=== PATIENT | male | born 1990 ===

== ENCOUNTER 2018-04-07 13:54 | Emergency (ER) | payer OTHER ==
--- NOTE | 2018-04-07 16:02 | ED PDOC ---
HPI: Psych/Substance Abuse Time Seen by Provider: 04/07/18 15:31 Chief Complaint (Nursing): Psychiatric Evaluation Chief Complaint (Provider): Psychiatric Evaluation History Per: Patient History/Exam Limitations: no limitations Onset/Duration Of Symptoms: Days Current Symptoms Are (Timing): Still Present Additional Complaint(s): 27 year old male with a history of paranoia presents to the ER for psychiatric evaluation. He was sent by Dr. Gary Draper for testing. Patient refused to take Aristada IM injection because the side effects of memory loss and advised to c ome to the ER. Denies suicidal ideation or homicidal ideation. Past Medical History Reviewed: Historical Data, Nursing Documentation, Vital Signs Vital Signs: Last Vital Signs Temp 98.5 F 04/07/18 13:56 Pulse 55 L 04/07/18 13:56 Resp 16 04/07/18 13:56 BP 150/88 04/07/18 13:56 Pulse Ox 98 04/07/18 13:56 - Medical History PMH: No Chronic Diseases - Family History Family History: States: Unknown Family Hx - Allergies Allergies/Adverse Reactions: Allergies Allergy/AdvReac Type Severity Reaction Status Date / Time No Known Allergies Allergy Verified 04/07/18 15:30 Review of Systems ROS Statement: Except As Marked, All Systems Reviewed And Found Negative Constitutional: Negative for: Fever, Chills Psych: Negative for: Suicidal ideation, Other (homicidal ideation ) Physical Exam - Reviewed Nursing Documentation Reviewed: Yes Vital Signs Reviewed: Yes - Physical Exam Appears: Positive for: Well, Non-toxic, No Acute Distress Head Exam: Positive for: ATRAUMATIC, NORMAL INSPECTION, NORMOCEPHALIC Skin: Positive for: Normal Color, Warm, Dry. Negative for: Rash Eye Exam: Positive for: Normal appearance, Other (Scaly skin noted on right eyelid) ENT: Positive for: Normal ENT Inspection Neck: Positive for: Normal, Painless ROM, Supple. Negative for: Decreased ROM Cardiovascular/Chest: Positive for: Regular Rate, Rhythm. Negative for: Murmur Respiratory: Positive for: Normal Breath Sounds. Negative for: Decreased Breath Sounds, Wheezing, Respiratory Distress Gastrointestinal/Abdominal: Positive for: Normal Exam, Soft. Negative for: Tenderness, Guarding, Rebound Back: Positive for: Normal Inspection Extremity: Positive for: Normal ROM. Negative for: Tenderness, Pedal Edema, Deformity Neurologic/Psych: Positive for: Alert, Oriented (x3), Other (calm and not aggregated). Negative for: Motor/Sensory Deficits - ECG O2 Sat by Pulse Oximetry: 98 (RA) Pulse Ox Interpretation: Normal - Progress ED Course And Treament: Seen by Crisis Cleared for d/c home by Dr. Denis Diagnosis Paranoid schizophrenia Medical Decision Making Medical Decision Making: Time: 1529 Initial Plan: Alcohol Serum CMP Drug Screen CBC w/ Differential Urinalysis Reevaluation Scribe Attestation: Documented by Guilherme Ramos, acting as a scribe for Pedro Wright PA-C Provider Scribe Attestation: All medical record entries made by the Scribe were at my direction and personally dictated by me. I have reviewed the chart and agree that the record accurately reflects my personal performance of the history, physical exam, medical decision making, and the department course for this patient. I have also personally directed, reviewed, and agree with the discharge instructions and disposition. Disposition - Clinical Impression Clinical Impression: Paranoid schizophrenia - Patient ED Disposition Is Patient to be Admitted: No - Disposition Disposition: Routine/Home Disposition Time: 17:29 Condition: FAIR Instructions: Schizophrenia (DC)
[2018-04-07 18:06] VITALS: BP 132/80; PULSE 61; RESP 18; TEMP 98.4; O2SAT 100
== END 2018-04-07 18:00 | disposition home or self-care (01) ==
LOC: H.ER 13:54
DX: F20.0 Paranoid schizophrenia (principal); Z00.8 Encounter for other general examination